=== PATIENT | male | born 1955 | race Caucasian/White ===

== ENCOUNTER 2021-12-26 18:37 | Emergency (ER) | payer BC ==
[~2021-12-26] VITALS: Ht 175.3 cm; Wt 77.3 kg
--- NOTE | 2021-12-26 19:03 | PHYS DOC ---
Past Medical History Smoking Status: Current Every Day Smoker Alcohol Use: None Adult General Chief Complaint Chief Complaint: SYNCOPE HPI HPI Patient is a 66 year old male presenting to the emergency department for evaluation of a syncopal or near syncopal episode that occurred shortly prior to arrival. Patient was reportedly at his granddaughter's wedding when he started to feel lightheaded while he was standing up. Patient says that he went out to his truck and he felt more nauseated and sick and sat down and either fully passed out or was very close to passing out. 911 was called and he was given fluids and Zofran. Patient says that he has pain in his abdomen and his back. The abdominal pain is epigastric cramping and the back pain is lower back pain. He says that he has a history of hypertension and GERD but does not take any blood thinners and he did not know all his medications. Patient says that he feels better now but is still nauseated and has some abdominal pain. He is in no acute distress. He was initially hypotensive but now has a normal blood pressure. He is slightly tachycardic at 102 bpm on the EKG. Review of Systems Review of Systems Constitutional: Denies fever or chills [] Eyes: Denies change in visual acuity, redness, or eye pain [] HENT: Denies nasal congestion or sore throat [] Respiratory: Denies cough or shortness of breath [] Cardiovascular: No additional information not addressed in HPI [] GI: + abdominal pain, nausea. No vomiting, bloody stools or diarrhea [] : Denies dysuria or hematuria [] Musculoskeletal: + back pain. No joint pain [] Integument: Denies rash or skin lesions [] Neurologic: Denies headache, focal weakness or sensory changes [] All other systems were reviewed and found to be within normal limits, except as documented in this note. Current Medications Current Medications Current Medications Medications (Trade) Dose Ordered Sig/Cliff Start Time Stop Time Status Last Admin Dose Admin Fentanyl Citrate (Fentanyl 2ml Vial) 75 mcg 1X ONCE 12/26/21 19:00 12/26/21 19:01 DC 12/26/21 19:26 75 MCG Ondansetron HCl (Zofran) 4 mg 1X ONCE 12/26/21 19:00 12/26/21 19:01 DC 12/26/21 19:26 4 MG Sodium Chloride 1,000 ml @ 1,000 mls/hr 1X ONCE 12/26/21 19:00 12/26/21 19:59 DC 12/26/21 19:26 1,000 MLS/HR Allergies Allergies Allergies Coded Allergies Type Severity Reaction Last Updated Verified Penicillins Allergy Intermediate 12/26/21 Yes iodine Allergy Intermediate 12/26/21 Yes Physical Exam Physical Exam Constitutional: Well developed, well nourished, no acute distress, non-toxic appearance. [] HENT: Normocephalic, atraumatic, bilateral external ears normal, oropharynx moist, no oral exudates, nose normal. [] Eyes: PERRLA, EOMI, conjunctiva normal, no discharge. [] Neck: Normal range of motion, no tenderness, supple, no stridor. [] Cardiovascular: Tachycardic rate regular rhythm, no murmur [] Lungs & Thorax: Bilateral breath sounds clear to auscultation [] Abdomen: Bowel sounds normal, soft, positive diffuse tenderness to palpation with no rebound or guarding Skin: Warm, dry, no erythema, no rash. [] Back: No tenderness, no CVA tenderness. [] Extremities: No tenderness, no cyanosis, no clubbing, ROM intact, no edema. [] Neurologic: Alert and oriented X 3, normal motor function, normal sensory function, no focal deficits noted. [] Current Patient Data Vital Signs Vital Signs Date Time Temp Pulse Resp B/P (MAP) Pulse Ox O2 Delivery O2 Flow Rate FiO2 12/26/21 21:32 95 18 131/71 (91) 96 Room Air 12/26/21 18:48 97.8 97.8 Lab Values Laboratory Tests Test 12/26/21 19:20 12/26/21 20:57 White Blood Count 1.9 x10^3/uL (4.0-11.0) *L Red Blood Count 3.45 x10^6/uL (4.30-5.70) L Hemoglobin 11.6 g/dL (13.0-17.5) L Hematocrit 33.5 % (39.0-53.0) L Mean Corpuscular Volume 97 fL (79-100) Mean Corpuscular Hemoglobin 34 pg (25-35) Mean Corpuscular Hemoglobin Concent 35 g/dL (31-37) Red Cell Distribution Width 16.7 % (11.5-14.5) H Platelet Count 38 x10^3/uL (140-400) L Neutrophils (%) (Auto) 79 % (31-73) H Lymphocytes (%) (Auto) 12 % (24-48) L Monocytes (%) (Auto) 7 % (0-9) Eosinophils (%) (Auto) 1 % (0-3) Basophils (%) (Auto) 0 % (0-3) Neutrophils # (Auto) 1.5 x10^3/uL (1.8-7.7) L Lymphocytes # (Auto) 0.2 x10^3/uL (1.0-4.8) L Monocytes # (Auto) 0.1 x10^3/uL (0.0-1.1) Eosinophils # (Auto) 0.0 x10^3/uL (0.0-0.7) Basophils # (Auto) 0.0 x10^3/uL (0.0-0.2) Segmented Neutrophils % 86 % (35-66) H Lymphocytes % 11 % (24-48) L Monocytes % 2 % (0-10) Eosinophils % 1 % (0-5) Platelet Estimate Decreased (ADEQUATE) Sodium Level 138 mmol/L (136-145) Potassium Level 4.5 mmol/L (3.5-5.1) Chloride Level 106 mmol/L (98-107) Carbon Dioxide Level 22 mmol/L (21-32) Anion Gap 10 (6-14) Blood Urea Nitrogen 10 mg/dL (8-26) Creatinine 1.1 mg/dL (0.7-1.3) Estimated GFR (Cockcroft-Gault) 67.4 BUN/Creatinine Ratio 9 (6-20) Glucose Level 222 mg/dL (70-99) H Calcium Level 9.0 mg/dL (8.5-10.1) Total Bilirubin 1.9 mg/dL (0.2-1.0) H Aspartate Amino Transferase (AST) 72 U/L (15-37) H Alanine Aminotransferase (ALT) 61 U/L (16-63) Alkaline Phosphatase 159 U/L (46-116) H Creatine Kinase 134 U/L (39-308) Troponin I High Sensitivity 11 ng/L (4-75) PJ-Biy-C-Type Natriuretic Peptide 88 pg/mL (0-124) Total Protein 7.5 g/dL (6.4-8.2) Albumin 2.9 g/dL (3.4-5.0) L Albumin/Globulin Ratio 0.6 (1.0-1.7) L Lipase 255 U/L (73-393) Thyroid Stimulating Hormone (TSH) 1.677 uIU/mL (0.358-3.74) Ethyl Alcohol Level < 10 mg/dL (0-10) Urine Collection Type Unknown Urine Color (Auto) Yellow Urine Turbidity Clear Urine pH (Auto) 5.5 (<5.0-8.0) Urine Specific [place] 1.018 (1.000-1.030) Urine Protein (Auto) Negative mg/dL (Negative) Urine Glucose (Auto)(UA) 200 mg/dL (Negative) Urine Ketones (Auto) Trace mg/dL (Negative) Urine Blood (Auto) Negative (Negative) Urine Nitrite Negative (Negative) Urine Bilirubin (Auto) Negative (Negative) Urine Urobilinogen (Auto) 2 mg/dL (Normal) Urine Leukocyte Esterase (Auto) Negative (Negative) Urine RBC 1-2 /HPF (0-2) Urine WBC 0 /HPF (0-4) Urine Squamous Epithelial Cells Occ /LPF Urine Bacteria 0 /HPF (0-FEW) Urine Mucus Slight /LPF Laboratory Tests 12/26/21 19:20 Laboratory Tests 12/26/21 19:20 EKG EKG Sinus tachycardia at 102 bpm with normal axis no deviation no ST elevation or depression and normal T waves. Radiology/Procedures Radiology/Procedures [] Course & Med Decision Making Course & Med Decision Making Patient presenting with a nonspecific syncopal episode that is most consistent with a vasovagal episode. I will check labs and imaging treat symptoms and reassess. Patient continues to feel better in the emergency department and his pain resolved and his nausea resolved as well. Patient has multiple incidental findings including his lung cancer with metastatic lesions to the liver. P atient knows about all these findings as well as the pancytopenia. Patient said that he is very anxious to leave has he feels back to his baseline and does not want to be admitted to the hospital. The confirmed he is at his baseline and he was able to ambulate unassisted with no difficulty. Given patient appears well with normal vital signs benign physical exam and work-up and is asking to go home I will discharge him in stable condition told him to follow-up primary care provider within 2 to 3 days and come back to emergency department sooner with worsening pain neurologic changes or other general concerns. Patient aware and agreeable with plan and verbalized understanding of the above instructions. Dragon Disclaimer Dragon Disclaimer This electronic medical record was generated, in whole or in part, using a voice recognition dictation system. Departure Departure Impression: Primary Impression: Abdominal pain Additional Impressions: Pancytopenia Vasovagal near syncope Nausea alone Disposition: 07 LEFT AWOL/ELOPED Condition: STABLE Problem Qualifiers Primary Impression: Abdominal pain Abdominal location: unspecified location Qualified Codes: R10.9 - Unspecified abdominal pain BARBARA RICHARDS DO Dec 26, 2021 19:03
[2021-12-26] MEDS: ONDANSETRON PF 4 MG/2 ML VIAL. IVP ONE (19:26)
[2021-12-26] MEDS: fentaNYL PF VIAL 100 MCG/2 ML VIAL IVP ONE (19:26)
[2021-12-26] MEDS: IV NORMAL SALINE 1000ML BAG 1,000 ML IV ONE (19:26)
[2021-12-26 19:30] LABS: BASO % 0 % (0-3); EOS % 1 % (0-3); HEMATOCRIT 33.5 % (39.0-53.0); HEMOGLOBIN 11.6 g/dL (13.0-17.5); LYMPH # 0.2 x10^3/uL (1.0-4.8); LYMPH % 12 % (24-48); MEAN CORPUSCULAR HEMOGLOBIN 34 pg (25-35); MEAN CORPUSCULAR HGB CONC 35 g/dL (31-37); MEAN CORPUSCULAR VOLUME 97 fL (79-100); MONO # 0.1 x10^3/uL (0.0-1.1); MONO % 7 % (0-9); NEUT # 1.5 x10^3/uL (1.8-7.7); NEUT % 79 % (31-73); PLATELET COUNT 38 x10^3/uL (140-400); RED BLOOD COUNT 3.45 x10^6/uL (4.30-5.70); RED CELL DISTRIBUTION WIDTH 16.7 % (11.5-14.5)
[2021-12-26 19:34] LABS: WHITE BLOOD COUNT 1.9 x10^3/uL (4.0-11.0)
[2021-12-26 19:41] LABS: CREATININE 1.1 mg/dL (0.7-1.3); GFR 67.4; POTASSIUM 4.5 mmol/L (3.5-5.1)
[2021-12-26 19:48] LABS: ALBUMIN 2.9 g/dL (3.4-5.0); ALBUMIN/GLOBULIN RATIO 0.6 (1.0-1.7); TOTAL BILIRUBIN 1.9 mg/dL (0.2-1.0); TOTAL PROTEIN 7.5 g/dL (6.4-8.2)
[2021-12-26 20:04] LABS: % EOS 1 % (0-5); % LYMPHS 11 % (24-48); % MONOS 2 % (0-10); % SEGS 86 % (35-66); PLT ESTIMATE DECREASED (ADEQUATE)
--- NOTE | 2021-12-26 20:21 | RAD ---
Exam Date: 12/26/2021 8:[address] HEAD/BRAIN WO Indication: Reason: syncope / Spl. Instructions: / History: . TECHNIQUE: Head CT was performed without intravenous contrast. One or more of the following dose re duction techniques were utilized: *Automated exposure control (AEC) *Adjustment of mA and/or kV according to patient size *Use of iterative reconstruction technique *CT scan done according to ALARA, or ALARA/IMAGE GENTLY FINDINGS: The ventricles and sulci are prominent consistent with cerebral volume loss. Patchy ill-defined low attenuation areas in the subcortical and periventricular white matter bilaterally are consistent with microvascular disease. There is no evidence of acute intracranial hemorrhage, extra-axial collecti on, mass effect, midline shift, or acute territorial infarct. No lesion of the skull base or the calv arium is seen. The visualized paranasal sinuses, mastoid air cells and orbits are normal in appearanc e. IMPRESSION: No evidence for acute intracranial abnormality. Volume loss and microvascular disease. Electronically signed by: Puneet Jacobs MD (12/26/2021 8:18 PM) [id number]
--- NOTE | 2021-12-26 21:03 | RAD ---
CT chest M pelvis without contrast dated 12/26/2021. COMPARISON: None. INDICATION: Syncope TECHNIQUE: Contiguous axial imaging the chest abdomen pelvis performed without the administration of IV or oral contrast. One or more of the following individualized dose reduction techniques were utilized for this examinat ion: 1. Automated exposure control 2. Adjustment of the mA and/or kV according to patient size 3. Use of iterative reconstruction technique FINDINGS: Heart size is within normal limits. No pericardial effusion. Coronary artery calcifications. No media stinal, hilar or axillary lymphadenopathy. Thyroid gland unremarkable. Central airways are patent. There is a spiculated mass of the right upper lobe that measures 1.5 x 1. 8 cm. There are linear bands of increased density that extends to the anterior pleural margin and pos teriorly toward the apex. There is an additional nodular density in the right upper lobe laterally on image 26 that measures about 5 mm. There are a few scattered calcified granuloma. Linear bands of in creased density in the lingula and left lower lobe, likely scar or atelectasis. No pleural effusion. There is some groundglass density in the left upper lobe laterally on image 17 that measures about 1. 3 cm. Images of the upper abdomen show heterogeneous liver with nodular capsule, consistent with cirrhosis. Small amount of perihepatic ascites. There is a low-density nodule in the right lobe that measures 9 mm, indeterminate. Spleen is moderately enlarged. Prominent venous collaterals in the perigastric region and along the a nterior abdominal wall. Calcified stones in the gallbladder. Adrenal glands and kidneys are unremarka ble. No hydronephrosis. There is wall thickening of the right colon and left colon. Extensive diverticula within the sigmoid and descending colon. Appendix normal in caliber. No retroperitoneal or mesenteric adenopathy. Abdomi nal aorta is normal in caliber. Images of pelvis a nondistended urinary bladder. Prostate gland is normal in size. No pelvic adenopat hy. There is a small amount of free fluid. Bone windows show no acute findings. Multilevel spondylosis. IMPRESSION: 1. Spiculated mass in the right upper lobe suspicious for primary bronchogenic malignancy. PET CT cou ld better evaluate. 2. There are a few additional scattered noncalcified pulmonary nodules within both lungs with vague g roundglass opacity in the left upper lobe, indeterminate. Follow-up imaging to ensure stability. 3. Findings consistent with cirrhosis with portal hypertension. There is a small amount of ascites. 4. There is a small low-density nodular focus in the right lobe liver, indeterminate. This could be b kathe evaluated with hepatic MRI. 5. Areas of wall thickening involving the right and left colon, nonspecific. This could be a manifest ation of hepatocellular disease. Infectious or inflammatory colitis not excluded. 6. Extensive diverticulosis. 7. Cholelithiasis. Electronically signed by: Romaroi West MD (12/26/2021 9:00 PM) MÓNICA
[2021-12-26 21:11] LABS: BACTERIA,URINE 0 /HPF (0-FEW); WBC,URINE 0 /HPF (0-4)
[2021-12-26 21:32] VITALS: BP 131/71
--- NOTE | 2021-12-27 00:48 | EKG ---
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
== END 2021-12-26 21:36 | disposition home or self-care (01) ==
LOC: ER 18:37
DX: R10.13 Epigastric pain (principal); D61.818 Other pancytopenia; R55 Syncope and collapse; R11.0 Nausea; R51.9 Headache, unspecified; Z88.0 Allergy status to penicillin; Z88.8 Allergy status to other drugs, medicaments and biological substances
CPT/HCPCS: 36415; 70450; 71250; 74176; 80053; 81001; 82550; 83690; 83880; 84443; 84484; 85007; 85025; 93005; 96361; 96374; 96375; 99285; G0480; J2405; J3010; J7030